=== PATIENT | female | born 1990 | race Caucasian/White ===

== ENCOUNTER 2021-06-04 08:13 | Emergency (ER) | payer OTHER, SELFPAY ==
[2021-06-04 08:30] VITALS: BP 144/78; PULSE 91; RESP 16; TEMP 37.3; O2SAT 98; BMI 25.1
--- NOTE | 2021-06-04 08:36 | ED.URI ---
HPI - URI/Sore Throat General Chief Complaint: Upper Respiratory Symptoms Stated Complaint: Fever, swollen throat Time Seen by Provider: 06/04/21 08:31 History of Present Illness HPI Narrative: Patient is a healthy 30-year-old female who presents with sore throat. She states she just got over COVID 2 weeks ago recovered well but yesterday started noticing she had mild sore throat. She took ibuprofen which helped. However woke up this morning with a temperature of 103? and persistent right-sided throat pain. Afebrile now. She denies any other symptoms Review of Systems Review of Systems Narrative: GENERAL: Denies chills,fever HEENT: See HPI RESPIRATORY: Denies dyspnea, cough, wheezing CARDIOVASCULAR: Denies chest pain, palpitations GASTROINTESTINAL: Denies nausea, vomiting MUSCULOSKELETAL: Denies extremity pain, injury SKIN: No rash, no laceration, no pruritus NEUROLOGIC: Denies weakness, dizziness, headache, numbness 8 point review of systems is negative except for those stated above and HPI Patient History Social History Smoking Status: Never smoker Exam Initial Vital Signs Initial Vital Signs: Vital Signs Temperature 99.2 F 06/04/21 08:30 Pulse Rate 91 H 06/04/21 08:30 Respiratory Rate 16 06/04/21 08:30 Blood Pressure 144/78 H 06/04/21 08:30 Pulse Oximetry 98 06/04/21 08:30 GENERAL: Alert well-appearing 30-year-old female HEENT: Head atraumatic,EOMI, pupils reactive, face symmetric, moist mucous membranes PHARYNX: Mild erythema slightly swollen right side no exudate no uvula rotation airway walked no cervical lymphadenopathy CARDIOVASCULAR: Regular rate and rhythm without murmurs, rubs or gallops. No stridor no drooling RESPIRATORY: Breath sounds equal bilaterally, no wheezes rales or rhonchi. EXTREMITIES: Normal range of motion, no clubbing or edema. Neurovascularly intact NEUROLOGICAL: Alert and oriented x4. SKIN: Warm, dry, no laceration, no petechiae, no rashes or lesions. Course Orders Ordered: ED Orders 06/04/21 08:35 Throat Culture Stat Vital Signs Vital signs: Vital Signs - 8 hr 06/04/21 08:30 Temperature 99.2 F Pulse Rate 91 H Respiratory Rate 16 Blood Pressure 144/78 H Pulse Oximetry 98 MDM - URI/Sore Throat Lab Data Labs: Point of Care Testing Rapid Strep A Negative MDM Narrative Medical decision making narrative: At this time she is very minimal swelling managing secretions no sign of peritonsillar abscess or retropharyngeal abscess she overall appears well. Throat culture is also sent. No need for antibiotics at this time. No need to test for COVID she just got over 2 weeks ago. Discharge Plan Departure Patient Disposition: Home Clinical Impression: Acute pharyngitis Instructions: DI for Viral Pharyngitis Activity Restrictions/Additional Instructions: *You have been diagnosed with viral pharyngitis *What to do: At this time rapid strep is negative which is generally pretty accurate, however back up has been sent. At this time would wait on antibiotics. If culture is positive in 2-3 days we will call you *Continue to take medications as directed *Follow up with your primary care provider in 2-3 days or call [phone] *Return to ER if you should have increasing throat pain difficulty swallowing,or any new, worsening or concerning symptoms
== END 2021-06-04 09:40 | disposition home or self-care (01) ==
PROVIDERS: Emergency Provider Emergency Medicine
DX: J02.9 Acute pharyngitis, unspecified (principal); Z86.16 Personal history of COVID-19
CPT/HCPCS: 87070; 87147; 87880; 99282